=== PATIENT | female | born 1975 | race Caucasian/White ===

== ENCOUNTER → 2017-06-22 | Outpatient (CLI) | payer OTHER ==
[~2017-06-22] MED LIST: AMOXICILLIN 50500 MG PO; CLARITIN 1010 MG/TAB PO; DESYREL 50MG50 MG PO; FLINTSTONES COM1 CT1 PO; MOTRIN 600600 MG/TAB PO; NEXIUM 40MG40 MG PO; PERCOCET 325 MG1 TA2 PO; PROAIR HFA0.09 MG/AC IH; ZANTAC 150MG T150 MG PO
== END ==
LOC: COL.PUL 12:55
DX: J45.909 Unspecified asthma, uncomplicated (principal); F17.210 Nicotine dependence, cigarettes, uncomplicated

== ENCOUNTER → 2017-12-16 | Outpatient (CLI) | payer OTHER | LOC: COL.RAD 11-25 11:00 | DX: Z53.20 Procedure and treatment not carried out because of patient's decision for unspecified reasons (principal); K21.9 Gastro-esophageal reflux disease without esophagitis ==